=== PATIENT | male | born 1970 | race Caucasian/White ===

== ENCOUNTER → 2023-03-23 13:58 | Outpatient (REF) | payer BC, SELFPAY | LOC: DHCBS MAIN 13:58 | PROVIDERS: ATTENDING PHYSICIAN Internal Medicine Cardiovascular Disease; FAMILY PHYSICIAN Family Medicine | DX: R01.1 Cardiac murmur, unspecified (principal) | CPT/HCPCS: 93306 ==

== ENCOUNTER → 2024-07-10 13:24 | Outpatient (REF) | payer BC, SELFPAY | LOC: MRI 13:24 | PROVIDERS: ATTENDING PHYSICIAN Nurse Practitioner Gerontology; FAMILY PHYSICIAN Family Medicine | DX: G43.909 Migraine, unspecified, not intractable, without status migrainosus (principal); R51.9 Headache, unspecified; G62.9 Polyneuropathy, unspecified | CPT/HCPCS: 70551 ==